=== PATIENT | female | born 1970 | race Caucasian/White ===

== ENCOUNTER 2017-07-17 09:55 | Outpatient (CLI) | payer OTHER ==
[~2017-07-17 09:55] MED LIST: LOSARTAN-HCTZ1 EAC1
== END 2017-07-17 10:07 | disposition home or self-care (01) ==
LOC: MAMO-SONO 09:55
DX: N62 Hypertrophy of breast (principal); Z12.31 Encounter for screening mammogram for malignant neoplasm of breast

== ENCOUNTER 2018-01-18 10:35 | Emergency (ER) | payer OTHER ==
[~2018-01-18] VITALS: Ht 152.4 cm; Wt 90.7 kg
[2018-01-18] MEDS ORDERED: GLIMEPIRIDE2 MG (11:06)
== END 2018-01-18 12:54 | disposition home or self-care (01) ==
LOC: ER 10:35
DX: M25.512 Pain in left shoulder (principal)

== ENCOUNTER 2018-01-18 13:03 | Outpatient (CLI) | payer OTHER ==
[~2018-01-18 13:03] MED LIST changes: +GLIMEPIRIDE2 MG
== END 2018-01-18 13:35 | disposition home or self-care (01) ==
LOC: RAD 13:03
DX: M25.512 Pain in left shoulder (principal)